=== PATIENT | female | born 1990 | race African-American/Black ===

== ENCOUNTER 2017-08-13 16:42 | Emergency (ER) | payer BC ==
[~2017-08-13] VITALS: Ht 152.4 cm; Wt 60.0 kg
[~2017-08-13 16:42] MED LIST: DICY1TAB26 PO; IBUP600 PO; ZOFR4TAB3 SL
[2017-08-13 16:44] VITALS: BP 114/66; PULSE 111; RESP 18; TEMP 98.7; O2SAT 100
[2017-08-13] MEDS ORDERED: ZITHTAB PO (17:10)
--- NOTE | 2017-08-13 17:10 | PD ---
HPI Chief Complaint: Cold / Flu Symptoms Time Seen by Provider: 16:57 Travel History International Travel<30 days: No Contact w/Intl Traveler<30days: No Traveled to known affect area: No History of Present Illness HPI 26-year-old female complains of earache sore throat coughing congestion body ache. Patient states that the symptoms started yesterday. Patient states that she had low-grade fever at home. Patient denies abdominal pain. Patient denies any nausea vomiting diarrhea. Patient denies any chance of being . PFSH Past Medical History Diminished Hearing: No Immunizations Current: Yes ?: Not Social History Alcohol Use: No Tobacco Use: No Substance Use: No Allergies-Medications (Allergen,Severity, Reaction): Coded Allergies: chloral hydrate (Unverified Allergy, Unknown, 02/23/17) Reported Meds & Prescriptions Reported Meds & Active Scripts Active No Active Prescriptions or Reported Medications Review of Systems General / Constitutional: No: Fever Eyes: No: Visual changes HENT: Positive: Sore Throat, Congestion, Earache, No: Headaches Cardiovascular: No: Chest Pain or Discomfort Respiratory: Positive: Cough, No: Shortness of Breath Gastrointestinal: No: Abdominal Pain Genitourinary: No: Dysuria Musculoskeletal: No: Pain Skin: No Rash Neurologic: No: Weakness Psychiatric: No: Depression Endocrine: No: Polydipsia Hematologic/Lymphatic: No: Easy Bruising Physical Exam Narrative GENERAL: Well-nourished, well-developed patient. SKIN: Focused skin assessment warm/dry. HEAD: Normocephalic. EYES: No scleral icterus. No injection or drainage. TM: Clear. Throat: Mild erythematous. NECK: Supple, trachea midline. No JVD or lymphadenopathy. No meningismus CARDIOVASCULAR: Regular rate and rhythm without murmurs, gallops, or rubs. RESPIRATORY: Breath sounds equal bilaterally. No accessory muscle use. GASTROINTESTINAL: Abdomen soft, non-tender, nondistended. MUSCULOSKELETAL: No cyanosis, or edema. BACK: Nontender without obvious deformity. No CVA tenderness. Neurologic exam normal. Data Data Last Documented VS Vital Signs Date Time Temp Pulse Resp B/P (MAP) Pulse Ox O2 Delivery O2 Flow Rate FiO2 08/13/17 16:44 98.7 111 18 114/66 (82) 100 MDM Medical Decision Making Medical Screen Exam Complete: Yes Emergency Medical Condition: Yes Differential Diagnosis Differential diagnosis including viral syndrome, otitis media, pharyngitis, bronchitis, pneumonia. Narrative Course 26-year-old female with earaches, sore throat, coughing congestion body ache. Diagnosis Primary Impression: Bronchitis Additional Impression: Viral syndrome Patient Instructions: General Instructions Additional Instructions: Z-Timothy as directed. Tylenol or ibuprofen for aching pain and fever. Over-the- counter cough medication as directed. Follow-up with personal physician. Return if worse. Med/Other Pt SpecificInfo: Prescription(s) given Scripts Azithromycin (Zithromax Z-Timothy) 250 Mg Dspk 250 MG PO DIRECTED for Infection, #1 DSPK 0 Refills 500 MG (2 tabs) day 1, then 1 tab days 2-5. Prov: Valentino Newberry MD 08/13/17 Disposition: 01 DISCHARGE HOME Condition: Stable Valentino Newberry MD Aug 13, 2017 17:10
== END 2017-08-13 17:21 | disposition home or self-care (01) ==
LOC: NEPD 16:42
DX: J40 Bronchitis, not specified as acute or chronic (principal); B34.9 Viral infection, unspecified
CPT/HCPCS: 99283

== ENCOUNTER 2017-08-14 20:58 | Observation (INO) | payer BC ==
[~2017-08-14] VITALS: Ht 152.4 cm; Wt 60.0 kg
[~2017-08-14 20:58] MED LIST changes: -DICY1TAB26 PO; -IBUP600 PO; +ZITHTAB PO; -ZOFR4TAB3 SL
[2017-08-14 21:02] VITALS: BP 132/59; PULSE 120; RESP 36; O2SAT 96
[2017-08-14 21:07] VITALS: O2SAT 100
[2017-08-14 21:14] VITALS: BP 127/78; PULSE 100; RESP 22; O2SAT 100
[2017-08-14 21:15] LABS: AUTOMATED NEUTROPHIL # 3.6 TH/MM3 (1.8-7.7); BASOPHIL # 0.1 TH/MM3 (0-0.2); BASOPHIL % 0.9 % (0.0-2.0); EOSINOPHIL # 0.1 TH/MM3 (0-0.4); EOSINOPHIL % 1.2 % (0.0-4.0); HEMATOCRIT 30.7 % (35.0-46.0); HEMOGLOBIN 10.1 GM/DL (11.6-15.3); LYMPH % 40.1 % (9.0-44.0); LYMPHOCYTE # 2.8 TH/MM3 (1.0-4.8); MEAN CELL VOLUME 77.2 FL (80.0-100.0); MEAN CORPUSCULAR HEMOGLOBIN 25.4 PG (27.0-34.0); MEAN PLATELET VOLUME 9.9 FL (7.0-11.0); MONOCYTE # 0.5 TH/MM3 (0-0.9); NEUT % 50.8 % (16.0-70.0); PLATELET COUNT 196 TH/MM3 (150-450); RED BLOOD COUNT 3.97 MIL/MM3 (4.00-5.30); RED CELL DISTRIBUTION WIDTH 16.5 % (11.6-17.2); WHITE BLOOD COUNT 7.1 TH/MM3 (4.0-11.0)
[2017-08-14] MEDS ORDERED: SODIUM CHLOR 0.9% 1000 ML INJ 1,000 ML IV ONE (21:15)
[2017-08-14] MEDS ORDERED: SODIUM CHLORIDE 0.9% FLUSH 10 ML FLUSH IVF PRN (21:15)
[2017-08-14] MEDS ORDERED: LORazepam 2 MG/ML VIAL IV PUSH ONE (21:15)
[2017-08-14 21:26] LABS: INTERNATIONAL NORMALIZED RATIO 1.1 RATIO; PROTHROMBIN TIME - PATIENT 11.1 SEC (9.8-11.6)
--- NOTE | 2017-08-14 21:26 | RADRPT ---
EXAM DATE/TIME: 08/14/2017 21:16 [facility] COMPARISON: CHEST SINGLE AP, March 09, 2015, 21:17. INDICATIONS : Chest pain patient states chest feels like it is caving in. MEDICAL HISTORY : None. SURGICAL HISTORY : None. ENCOUNTER: Initial ACUITY: 1 day PAIN SCORE: 8/10 LOCATION: Bilateral chest FINDINGS: The lungs are clear without infiltrate, nodule, or mass. There is no appreciable pleural effusion fo r technique. Heart and mediastinum are unremarkable. There is prominence of the perivascular marking s with crowding of the bronchovascular markings may be due to expiratory state of this radiograph, ho wever slight interstitial process is not excluded. CONCLUSION: No definite acute cardiopulmonary disease. Patric Hollins MD on August 14, 2017 at 21:23 Board Certified Radiologist. This report was verified electronically.
[2017-08-14 21:30] LABS: D-DIMER 0.86 MG/L FEU (0.00-0.50)
[2017-08-14 21:32] LABS: BICARBONATE 24.3 MEQ/L (21.0-32.0); BLOOD UREA NITROGEN 10 MG/DL (7-18); CHLORIDE 101 MEQ/L (98-107); CREATININE 0.73 MG/DL (0.50-1.00); GLOMERULAR FILTRATION RATE 119 ML/MIN (>89); GLUCOSE,RANDOM 100 MG/DL (74-106); MAGNESIUM 1.8 MG/DL (1.5-2.5); SODIUM (NA) 136 MEQ/L (136-145)
[2017-08-14 21:37] LABS: TROPONIN I LESS THAN 0.02 NG/ML (0.02-0.05)
--- NOTE | 2017-08-14 22:10 | PD ---
HPI Chief Complaint: Chest Pain Time Seen by Provider: 21:01 Travel History International Travel<30 days: No Contact w/Intl Traveler<30days: No Traveled to known affect area: No History of Present Illness HPI 26-year-old female presents hyperventilating complaining of chest pain and shortness of breath. She states that she was seen in the emergency department yesterday and diagnosed with bronchitis and started on an antibiotic. She also states that she was eating shrimp today. She is unsure if she is having an allergic reaction. She denies any known history of allergies. She reports having a cough. No fevers or chills. PFSH Past Medical History Medical History: Denies Significant Hx Diminished Hearing: No Immunizations Current: Yes Tetanus Vaccination: Unknown Influenza Vaccination: No ?: Not LMP: 08/11/2016 Past Surgical History Surgical History: No Previous Surgery Social History Alcohol Use: No Tobacco Use: No Substance Use: No Allergies-Medications (Allergen,Severity, Reaction): Coded Allergies: chloral hydrate (Unverified Allergy, Unknown, 08/14/17) Reported Meds & Prescriptions Reported Meds & Active Scripts Active Zithromax Z-Timothy (Azithromycin) 250 Mg Dspk 250 Mg PO DIRECTED 500 MG (2 tabs) day 1, then 1 tab days 2-5. Review of Systems Except as stated in HPI: all other systems reviewed are Neg Physical Exam Narrative GENERAL: Well-developed, well-nourished, awake, alert, hyperventilating SKIN: Focused skin assessment warm/dry. HEAD: Atraumatic. Normocephalic. EYES: Pupils equal and round. No scleral icterus. No injection or drainage. ENT: No nasal bleeding or discharge. Mucous membranes pink and moist. No tongue or lip swelling. No drooling or stridor. NECK: Trachea midline. No JVD. CARDIOVASCULAR: Tachycardic, rate 115, regular. RESPIRATORY: No accessory muscle use. Clear to auscultation. Breath sounds equal bilaterally. GASTROINTESTINAL: Abdomen soft, non-tender, nondistended. MUSCULOSKELETAL: No obvious deformities. No clubbing. No cyanosis. No edema. NEUROLOGICAL: Awake and alert. No obvious cranial nerve deficits. Motor grossly within normal limits. Normal speech. PSYCHIATRIC: Appears anxious. Data Data Last Documented VS Vital Signs Date Time Temp Pulse Resp B/P (MAP) Pulse Ox O2 Delivery O2 Flow Rate FiO2 08/14/17 23:50 119 20 120/73 (89) 100 Room Air Orders Orders Electrocardiogram (08/14/17 21:01) Basic Metabolic Panel (Bmp) (08/14/17 21:01) Ckmb (Isoenzyme) Profile (08/14/17 21:01) Complete Blood Count With Diff (08/14/17 21:01) Magnesium (Mg) (08/14/17 21:01) Prothrombin Time / Inr (Pt) (08/14/17 21:01) Act Partial Throm Time (Ptt) (08/14/17 21:01) Troponin I (08/14/17 21:01) Chest, Single Ap (08/14/17 21:01) Ecg Monitoring (08/14/17 21:01) Bilateral Bp Monitoring (08/14/17 21:01) Iv Access Insert/Monitor (08/14/17 21:01) Oximetry (08/14/17 21:01) Oxygen Administration (08/14/17 21:01) Sodium Chloride 0.9% Flush (Ns Flush) (08/14/17 21:15) Beta Hcg (Quant/Titer) (08/14/17 21:01) Lorazepam Inj (Ativan Inj) (08/14/17 21:15) D-Dimer (08/14/17 21:01) Sodium Chlor 0.9% 1000 Ml Inj (Ns 1000 M (08/14/17 21:15) Ct Pulmonary Angiogram (08/14/17 21:46) Ketorolac Inj (Toradol Inj) (08/14/17 22:15) Iohexol 350 Inj (Omnipaque 350 Inj) (08/14/17 22:53) Labs Laboratory Tests Test 08/14/17 21:04 White Blood Count 7.1 TH/MM3 Red Blood Count 3.97 MIL/MM3 Hemoglobin 10.1 GM/DL Hematocrit 30.7 % Mean Corpuscular Volume 77.2 FL Mean Corpuscular Hemoglobin 25.4 PG Mean Corpuscular Hemoglobin Concent 33.0 % Red Cell Distribution Width 16.5 % Platelet Count 196 TH/MM3 Mean Platelet Volume 9.9 FL Neutrophils (%) (Auto) 50.8 % Lymphocytes (%) (Auto) 40.1 % Monocytes (%) (Auto) 7.0 % Eosinophils (%) (Auto) 1.2 % Basophils (%) (Auto) 0.9 % Neutrophils # (Auto) 3.6 TH/MM3 Lymphocytes # (Auto) 2.8 TH/MM3 Monocytes # (Auto) 0.5 TH/MM3 Eosinophils # (Auto) 0.1 TH/MM3 Basophils # (Auto) 0.1 TH/MM3 CBC Comment DIFF FINAL Differential Comment Prothrombin Time 11.1 SEC Prothromb Time International Ratio 1.1 RATIO Activated Partial Thromboplast Time 23.4 SEC D-Dimer Quantitative (PE/DVT) 0.86 MG/L FEU Blood Urea Nitrogen 10 MG/DL Creatinine 0.73 MG/DL Random Glucose 100 MG/DL Calcium Level 9.0 MG/DL Magnesium Level 1.8 MG/DL Sodium Level 136 MEQ/L Potassium Level 3.5 MEQ/L Chloride Level 101 MEQ/L Carbon Dioxide Level 24.3 MEQ/L Anion Gap 11 MEQ/L Estimat Glomerular Filtration Rate 119 ML/MIN Total Creatine Kinase 66 U/L Troponin I LESS THAN 0.02 NG/ML Human Chorionic Gonadotropin, Quant LESS THAN 1 MIU/ML MDM Medical Decision Making Medical Screen Exam Complete: Yes Emergency Medical Condition: Yes Medical Record Reviewed: Yes Interpretation(s) EKG: Sinus, rate 96, leftward axis, normal intervals, no acute ischemic abnormality. Differential Diagnosis ACS, pneumothorax, peritonitis, PE, pneumonia, anxiety/panic attack Narrative Course Vital signs reviewed. CBC: WBC 7.1, hemoglobin 10.1, hematocrit 30.7, platelets 196. BMP is unremarkable. Beta hCG is negative. Cardiac enzymes are negative. D-dimer slightly elevated at 0.86. Chest x-ray: No definite acute cardiopulmonary disease. CT pulmonary angiogram: CONCLUSION: 1. No PE is identified. 2. Significant bilateral axillary, right supraclavicular, and mediastinal lymphadenopathy. The appearance is highly suspicious for a lymphoproliferative disorder. 3. Mild groundglass opacity at the lung bases could be related to atelectasis or could represent a mild pulmonary parenchymal process. Case discussed with on-call asphalt tile floor layer Dr. Gonzalez who states that the patient should either be admitted for 24-hour observation for biopsy or follow- up as an outpatient. I discussed this with the patient as well as the patient' s mother via telephone, and the patient prefers to stay in the hospital to have lymph node biopsy performed. Case discussed with hospitalist Dr. Corbin who will admit the patient to her service. Diagnosis Primary Impression: Lymphadenopathy Additional Impression: Atypical chest pain Admitting Information Admitting Physician Requests: Observation Referrals: Primary Care Physician 3 days Additional Instructions: Follow-up with a primary care physician this week. Return to the emergency department for worsening symptoms or any other concerns. Disposition: 01 DISCHARGE HOME Condition: Stable Pawan Beard MD Aug 14, 2017 22:10
[2017-08-14] MEDS ORDERED: KETOROLAC TROMETHAMINE 30 MG/ML (IVP) VIAL IV PUSH ONE (22:15)
[2017-08-14] MEDS ORDERED: IOHEXOL 350 MG/ML 10 ML VIAL (for RAD DIAG) IVCONTRAST ONE (22:53)
--- NOTE | 2017-08-14 23:10 | RADRPT ---
EXAM DATE/TIME: 08/14/2017 22:44 [facility] COMPARISON: No previous studies available for comparison. INDICATIONS : Chest pain and dyspnea; rule out pulmonary embolus. IV CONTRAST: 63 cc Omnipaque 350 (iohexol) IV RADIATION DOSE: 8.24 CTDIvol (mGy) MEDICAL HISTORY : Non-responsive. SURGICAL HISTORY : Non-responsive. ENCOUNTER: Initial ACUITY: 1 day PAIN SCALE: 6/10 LOCATION: chest TECHNIQUE: Volumetric scanning of the chest was performed using a pulmonary embolism protocol MIP images were re constructed. Using automated exposure control and adjustment of the mA and/or kV according to patien t size, radiation dose was kept as low as reasonably achievable to obtain optimal diagnostic quality images. DICOM format image data is available electronically for review and comparison. Follow-up recommendations for detected pulmonary nodules are based at a minimum on nodule size and pa tient risk factors according to Fleischner Society Guidelines. FINDINGS: PULMONARY ARTERIES: No filling defects are seen in the pulmonary arteries through the segmental level. LUNGS: There is groundglass opacity independent atelectasis in the lung bases bilaterally. No pneumothorax i s present. PLEURAE: There is no pleural thickening or pleural effusion. MEDIASTINUM: There are enlarged mediastinal lymph nodes bilaterally. No hilar lymphadenopathy is present. There is an enlarged subcarinal lymph node. Heart and great vessels demonstrate no acute finding. MUSCULOSKELETAL: Within normal limits for patient age. MISCELLANEOUS: There is markedly enlarged bilateral axillary lymphadenopathy with the largest left axillary lymph no de measuring 3.3 x 2.1 cm the largest right axillary lymph node measuring approximately 3.4 x 1.9 cm. There is a so supraclavicular lymphadenopathy bilaterally, right greater than left. CONCLUSION: 1. No PE is identified. 2. Significant bilateral axillary, right supraclavicular, and mediastinal lymphadenopathy. The appear ance is highly suspicious for a lymphoproliferative disorder. 3. Mild groundglass opacity at the lung bases could be related to atelectasis or could represent a mi ld pulmonary parenchymal process. Conor Carvaajl MD on August 14, 2017 at 22:58 Board Certified Radiologist. This report was verified electronically.
[2017-08-14 23:50] VITALS: BP 120/73; PULSE 119; RESP 20; O2SAT 100
[2017-08-15] MEDS ORDERED: ONDANSETRON HCL 4 MG/2 ML VIAL IVP PRN (00:15)
[2017-08-15] MEDS ORDERED: LACTULOSE SYRUP 20 GM/30 ML CUP PO PRN (00:15)
[2017-08-15] MEDS ORDERED: ACETAMINOPHEN 325 MG TAB PO PRN (00:15)
[2017-08-15] MEDS ORDERED: MORPHINE SULFATE 2 MG/ML INJ IV PUSH PRN (00:15)
[2017-08-15] MEDS ORDERED: MAGNESIUM HYDROXIDE SUSP 30 ML CUP PO PRN (00:15)
[2017-08-15] MEDS ORDERED: SODIUM CHLORIDE 0.9% FLUSH 10 ML FLUSH IV FLUSH PRN (00:15)
[2017-08-15] MEDS ORDERED: LORazepam 2 MG/ML VIAL IV PUSH PRN (00:15)
[2017-08-15] MEDS ORDERED: RESP: ALBUTEROL 2.5 MG/IPRATROPIUM 0.5 MG NEB (PRN) NEB (00:15)
[2017-08-15] MEDS ORDERED: ACETAMINOPHEN/HYDROcodone 325 MG/5 MG TAB PO PRN (00:15)
[2017-08-15] MEDS ORDERED: SENNOSIDES 8.6 MG TAB PO PRN (00:15)
[2017-08-15] MEDS ORDERED: BISACODYL 10 MG SUPP RECTAL PRN (00:15)
[2017-08-15 00:24] VITALS: O2SAT 100
--- NOTE | 2017-08-15 00:27 | HHI.HP ---
HPI [facility] Primary Care Physician Unknown Admission Diagnosis lymphadenopathy, atypical chest pain Diagnoses: (1) Chest pain Diagnosis: Principal (2) Lymphadenopathy Diagnosis: Principal Travel History International Travel<30 Days: No Contact w/Intl Traveler <30 Da: No Traveled to Known Affected Are: No History of Present Illness This is a 26-year-old female with no significant PMH who presented to the ER with complaints of chest pain and SOB starting tonight. Was seen in ER on for c/o cough, congestion and sore throat, diagnosed w/ Bronchitis and given Z-pack which she started yesterday. Today, states she felt better and went to a dinner alliance party, however had acute onset of chest pain and SOB. States chest pain is intermittent, severe, 8/10, worse w/ lying down, sitting up or deep breath, non-radiating. Reports non-productive cough. On arrival, BP 132/59, HR 120, O2 sat 96% on RA, Afebrile. CBC essentially unremarkable. History unremarkable. Troponin negative. INR 1.1. D-dimer elevated at 0.86. CXR with no acute findings. CTA Pulm negative for PE, significant bilateral axillary, right supraclavicular and mediastinal lymphadenopathy suspicious for lymphoproliferative disorder. Dr. Mir consulted by ER physician, recommended admission for biopsy for further evaluation. Review of Systems Except as stated in HPI: all other systems reviewed are Neg ROS: 14 point review of systems otherwise negative. Past Family Social History Past Medical History PMH: None Past Surgical History PAST SURGICAL HISTORY: None Allergies: Coded Allergies: chloral hydrate (Unverified Allergy, Unknown, 08/14/17) Family History PAST FAMILY HISTORY: Reviewed. No h/o DM or CAD Social History PAST SOCIAL HISTORY: Negative for alcohol, tobacco or drugs. Physical Exam Vital Signs Vital Signs Date Time Temp Pulse Resp B/P (MAP) Pulse Ox O2 Delivery O2 Flow Rate FiO2 08/15/17 00:03 117 18 98 Room Air 08/14/17 23:50 119 20 120/73 (89) 100 Room Air 08/14/17 21:14 100 22 127/78 (94) 100 Room Air 08/14/17 21:07 100 Room Air 08/14/17 21:02 120 36 132/59 (83) 96 Room Air Physical Exam PE: GENERAL: Extremely pleasant young black female in no acute distress. HEENT: PERRLA, EOMI. No scleral icterus or conjunctival pallor. No lid lag or facial droop. CARDIOVASCULAR: Regular rate and rhythm. No obvious murmurs to auscultation. No chest tenderness to palpation. RESPIRATORY: No obvious rhonchi or wheezing. Clear to auscultation. Breath sounds equal bilaterally. GASTROINTESTINAL: Abdomen soft, non-tender, nondistended. BS normal. MUSCULOSKELETAL: Extremities without clubbing, cyanosis, or edema. No obvious deformities. NEUROLOGICAL: Awake, alert and oriented x4. No focal neurologic deficits. Moving both upper and lower extremities spontaneously. Laboratory Laboratory Tests Test 08/14/17 21:04 White Blood Count 7.1 Red Blood Count 3.97 Hemoglobin 10.1 Hematocrit 30.7 Mean Corpuscular Volume 77.2 Mean Corpuscular Hemoglobin 25.4 Mean Corpuscular Hemoglobin Concent 33.0 Red Cell Distribution Width 16.5 Platelet Count 196 Mean Platelet Volume 9.9 Neutrophils (%) (Auto) 50.8 Lymphocytes (%) (Auto) 40.1 Monocytes (%) (Auto) 7.0 Eosinophils (%) (Auto) 1.2 Basophils (%) (Auto) 0.9 Neutrophils # (Auto) 3.6 Lymphocytes # (Auto) 2.8 Monocytes # (Auto) 0.5 Eosinophils # (Auto) 0.1 Basophils # (Auto) 0.1 CBC Comment DIFF FINAL Differential Comment Prothrombin Time 11.1 Prothromb Time International Ratio 1.1 Activated Partial Thromboplast Time 23.4 D-Dimer Quantitative (PE/DVT) 0.86 Blood Urea Nitrogen 10 Creatinine 0.73 Random Glucose 100 Calcium Level 9.0 Magnesium Level 1.8 Sodium Level 136 Potassium Level 3.5 Chloride Level 101 Carbon Dioxide Level 24.3 Anion Gap 11 Estimat Glomerular Filtration Rate 119 Total Creatine Kinase 66 Troponin I LESS THAN 0.02 Human Chorionic Gonadotropin, Quant LESS THAN 1 Result Diagram: 08/14/17210308/14/172103 Caprini VTE Risk Assessment Caprini VTE Risk Assessment: No/Low Risk (score <= 1) Caprini Risk Assessment Model Point Value = 1 Point Value = 2 Point Value = 3 Point Value = 5 Age 41-60 Minor surgery BMI > 25 kg/m2 Swollen legs Varicose veins or History of unexplained or recurrent spontaneous Oral contraceptives or hormone replacement Sepsis (< 1 month) Serious lung disease, including pneumonia (< 1 month) Abnormal pulmonary function Acute myocardial infarction Congestive heart failure (< 1 month) History of inflammatory bowel disease Medical patient at bed rest Age 61-74 Arthroscopic surgery Major open surgery (> 45 min) Laparoscopic surgery (> 45 min) Malignancy Confined to bed (> 72 hours) Immobilizing plaster cast Central venous access Age >= 75 History of VTE Family history of VTE Factor V Leiden Prothrombin [id number] Lupus anticoagulant Anticardiolipin antibodies Elevated serum homocysteine Heparin-induced thrombocytopenia Other congenital or acquired thrombophilia Stroke (< 1 month) Elective arthroplasty Hip, pelvis, or leg fracture Acute spinal cord injury (< 1 month) Prophylaxis Regimen Total Risk Factor Score Risk Level Prophylaxis Regimen 0-1 Low Early ambulation 2 Moderate Order ONE of the following: *Sequential Compression Device (SCD) *Heparin 5000 units SQ BID 3-4 Higher Order ONE of the following medications: *Heparin 5000 units SQ TID *Enoxaparin/Lovenox 40 mg SQ daily (WT < 150 kg, CrCl > 30 mL/min) *Enoxaparin/Lovenox 30 mg SQ daily (WT < 150 kg, CrCl > 10-29 mL/min) *Enoxaparin/Lovenox 30 mg SQ BID (WT < 150 kg, CrCl > 30 mL/min) AND/OR *Sequential Compression Device (SCD) 5 or more Highest Order ONE of the following medications: *Heparin 5000 units SQ TID (Preferred with Epidurals) *Enoxaparin/Lovenox 40 mg SQ daily (WT < 150 kg, CrCl > 30 mL/min) *Enoxaparin/Lovenox 30 mg SQ daily (WT < 150 kg, CrCl > 10-29 mL/min) *Enoxaparin/Lovenox 30 mg SQ BID (WT < 150 kg, CrCl > 30 mL/min) AND *Sequential Compression Device (SCD) Assessment and Plan Problem List: (1) Chest pain ICD Code: R07.9 - Chest pain, unspecified (2) Lymphadenopathy ICD Code: R59.1 - Generalized enlarged lymph nodes Status: Acute Assessment and Plan A/P: 1. Chest Pain: Atypical. Pleuritic. C/o chest pain worse w/ inspiration, recent dx of Bronchitis, on Z-pack. Admit for Observation, place on telemetry. Initial trop negative, check serial cardiac enzymes to eval for underlying ischemia, however low risk. Analgesics/antiemetics as needed. CXR negative for acute findings, CTA Pulm negative for PE, images reviewed by me. 2. Lymphadenopathy: CTA Pulm w/ significant bilateral lymphadenopathy suspicious for lymphoproliferative disorder. Dr. Mir consulted, recommended biopsy. Will consult IR for lymph node biopsy. 3. DVT Prophylaxis: SCD/Teds. 4. Social work for d/c planning as needed. 5. Case discussed w/ ER physician at length, labs/records/imaging reviewed by me. Jonelle Corbin MD Aug 15, 2017 00:27
[2017-08-15 01:00] VITALS: BP 108/58; PULSE 58; RESP 18; TEMP 97.9; O2SAT 99
[2017-08-15 04:01] VITALS: BP 103/58; PULSE 108; RESP 18; TEMP 98; O2SAT 100
[2017-08-15 06:11] VITALS: PULSE 83
[2017-08-15 07:17] VITALS: BP 106/56; PULSE 92; RESP 18; TEMP 99; O2SAT 99
[2017-08-15] MEDS ORDERED: DOCUSATE SODIUM 50 MG/SENNA 8.6 MG TAB PO SCH (09:00)
[2017-08-15] MEDS ORDERED: SODIUM CHLORIDE 0.9% FLUSH 10 ML FLUSH IV FLUSH SCH (09:00)
--- NOTE | 2017-08-15 09:34 | HHI.PR ---
Subjective Remarks Follow-up visit shortness of breath, bronchitis, lymphadenopathy. Patient seen and examined today. Significant other at the bedside. Patient reports she is doing okay. Occasional cough without any shortness of breath. Some nausea, vomiting, diarrhea. Denies any chest pain, palpitations. States diabetes runs in her family but no cancer. Objective Vitals Vital Signs Date Time Temp Pulse Resp B/P (MAP) Pulse Ox O2 Delivery O2 Flow Rate FiO2 08/15/17 07:17 99.0 92 18 106/56 (73) 99 08/15/17 06:11 83 08/15/17 04:01 98.0 108 18 103/58 (73) 100 08/15/17 01:00 97.9 58 18 108/58 (75) 99 08/15/17 00:34 08/15/17 00:24 100 08/15/17 00:03 117 18 98 Room Air 08/14/17 23:50 119 20 120/73 (89) 100 Room Air 08/14/17 21:14 100 22 127/78 (94) 100 Room Air 08/14/17 21:07 100 Room Air 08/14/17 21:02 120 36 132/59 (83) 96 Room Air I/O 08/14/17 08/14/17 08/14/17 08/15/17 08/15/17 08/15/17 06:59 14:59 22:59 06:59 14:59 22:59 Intake Total 1000 ml 1000 ml Balance 1000 ml 1000 ml Intake IV Total 1000 ml 1000 ml # Voids 1 Result Diagram: 08/14/17210308/14/172103 Imaging Last Imp[address] CT Angiography 08/14/172145 Signed Impressions: Service Date/Time: Monday, August 14, 2017 22:44 - CONCLUSION: 1. No PE is identified. 2. Significant bilateral axillary, right supraclavicular, and mediastinal lymphadenopathy. The appearance is highly suspicious for a lymphoproliferative disorder. 3. Mild groundglass opacity at the lung bases could be related to atelectasis or could represent a mild pulmonary parenchymal process. Conor Carvajal MD Chest X-Ray 08/14/172100 Signed Impressions: Service Date/Time: Monday, August 14, 2017 21:16 - CONCLUSION: No definite acute cardiopulmonary disease. Patric Hollins MD Objective Remarks GENERAL: This is a well-nourished, well-developed patient, in no apparent distress. SKIN: Warm and dry HEENT: Normocephalic. Pupils equal round and reactive. Nose without bleeding. Airway patent. NECK: Trachea midline. No JVD. Supple. CARDIOVASCULAR: Regular rate and rhythm without murmurs, gallops, or rubs. RESPIRATORY: Diminished bases. No wheezes, rales, or rhonchi. GASTROINTESTINAL: Abdomen soft, non-tender, nondistended. Bowel Sounds normoactive x4. MUSCULOSKELETAL: Extremities without clubbing, cyanosis, or edema. NEUROLOGICAL: Awake and alert. Oriented to time, place, person. No focal neuro deficit. Moves all extremities. Normal speech. A/P Problem List: (1) Chest pain ICD Code: R07.9 - Chest pain, unspecified (2) Lymphadenopathy ICD Code: R59.1 - Generalized enlarged lymph nodes Status: Acute Assessment and Plan Patient is a 26-year-old female with no significant PMH who presented to the ER with complaints of chest pain and SOB. Chest pain, atypical Pleuritic pain - Diagnosed with bronchitis prior to coming into the hospital on Z-Timothy - Troponin negative, CK negative - CXR negative for acute findings - CTA Pulm negative for PE - Analgesics, antiemetics as needed - Reports no chest pain today. On room air. Lymphadenopathy - CTA showed 1. No PEs identified. 2. Significant bilateral axillary, right supraclavicular, and mediastinal lymphadenopathy. Appears suspicious for lymphoproliferative disorder. 3. Mild groundglass opacity at the lung base could be related to atelectasis or could represent a pulmonary parenchymal process. - Hematology/oncology consult and general surgery for biopsy. Will await for further recommendation. Anemia - Monitor H&H - HGB 10 is her baseline. Check Iron panel and ferritin. - Hematology oncology consult as above DVT prop ambulation, SCDs Spoke with Dr. Mir and Dr. Kimble. Plan to discharge home today with follow- up appointment with Dr. Mir next week Tuesday for follow-up. Patient will have a scheduled appointment for biopsy with Dr. Kimble on Tuesday. Discharge patient to home Condition on discharge: Improved Regular Diet as tolerated Ad Yelitza activity Rx written: Continue azithromycin from home Cepacol lozenges when necessary Mucinex when necessary Follow-up with primary care physician Follow-up with Dr. Kimble, surgery, Tuesday08/17/17 Follow-up with Dr. Mir, hematology/oncology, Tuesday08/26/17 Discharge Planning Plan to discharge home today when cleared by oncology and general surgery. Yael George Aug 15, 2017 09:34
[2017-08-15 10:19] LABS: AUTOMATED NEUTROPHIL # 3.6 TH/MM3 (1.8-7.7); BASOPHIL % 0.4 % (0.0-2.0); EOSINOPHIL # 0.1 TH/MM3 (0-0.4); EOSINOPHIL % 1.4 % (0.0-4.0); HEMOGLOBIN 8.6 GM/DL (11.6-15.3); LYMPH % 31.5 % (9.0-44.0); MEAN CELL VOLUME 77.5 FL (80.0-100.0); MEAN CORPUSCULAR HEMOGLOBIN 25.6 PG (27.0-34.0); MEAN CORPUSCULAR HGB CONC 33.1 % (32.0-36.0); MEAN PLATELET VOLUME 9.8 FL (7.0-11.0); MONO % 8.8 % (0.0-8.0); MONOCYTE # 0.6 TH/MM3 (0-0.9); NEUT % 57.9 % (16.0-70.0); PLATELET COUNT 166 TH/MM3 (150-450); RED BLOOD COUNT 3.36 MIL/MM3 (4.00-5.30); RED CELL DISTRIBUTION WIDTH 16.7 % (11.6-17.2); WHITE BLOOD COUNT 6.3 TH/MM3 (4.0-11.0)
[2017-08-15 10:30] LABS: ALBUMIN 2.7 GM/DL (3.4-5.0); AST (GOT) 16 U/L (15-37); BICARBONATE 26.9 MEQ/L (21.0-32.0); BLOOD UREA NITROGEN 12 MG/DL (7-18); CALCIUM 8.3 MG/DL (8.5-10.1); CHLORIDE 106 MEQ/L (98-107); CREATININE 0.62 MG/DL (0.50-1.00); GLOMERULAR FILTRATION RATE 143 ML/MIN (>89); GLUCOSE,RANDOM 101 MG/DL (74-106); SODIUM (NA) 140 MEQ/L (136-145)
[2017-08-15 10:32] LABS: ALT (GPT) 17 U/L (10-53)
[2017-08-15 10:35] LABS: ALKALINE PHOSPHATASE 66 U/L (45-117); TOTAL BILIRUBIN ADULT 0.1 MG/DL (0.2-1.0); TOTAL PROTEIN 7.7 GM/DL (6.4-8.2); TROPONIN I LESS THAN 0.02 NG/ML (0.02-0.05)
[2017-08-15 11:53] VITALS: BP 112/72; PULSE 122; RESP 18; TEMP 99; O2SAT 100
[2017-08-15 11:53] LABS: IRON (FE) 20 MCG/DL (50-170)
[2017-08-15 12:02] LABS: % SATURATION IRON PROFILE 6.9 % (20-50); FERRITIN 16 NG/ML (8-252); TOTAL IRON BINDING CAPACITY 288 MCG/DL (250-450)
[2017-08-15] MEDS ORDERED: BENZOCAINE 6 MG/MENTHOL 10 MG LOZENGE BUCCAL ONE (13:00)
[2017-08-15] MEDS ORDERED: AZITHROMYCIN 250 MG TAB PO SCH (13:00)
[2017-08-15] MEDS ORDERED: RESP: ALBUTEROL 2.5 MG/IPRATROPIUM 0.5 MG NEB (SCH) NEB (13:00)
--- NOTE | 2017-08-15 13:29 | PD.CONS ---
HPI Service General Surgery Consult Requested By Dr. Corbin Reason for Consult lymph node biopsy Primary Care Physician Unknown History of Present Illness 26 yo F presents with c/o chest pain and shortness of breath; she has been feeling "sick" recently. No fevers or chills. She did notice a lump in right neck. She recently graduated from [employer]. CTA chest performed here reveals bilaterally axillary adenopathy, right supraclavicular adenopathy, mediastinal adenopathy. Review of Systems Constitutional: DENIES: Fever, Chills Eyes: DENIES: Eye inflammation, Eye pain Respiratory: COMPLAINS OF: Shortness of breath, DENIES: Cough, Snoring Cardiovascular: COMPLAINS OF: Chest pain Gastrointestinal: DENIES: Abdominal pain, Nausea Integumentary: DENIES: Pruritus, Rash Neurologic: DENIES: Paresthesias, Seizures Past Family Social History Past Medical History None Past Surgical History None Reported Medications None Allergies: Coded Allergies: chloral hydrate (Unverified Allergy, Unknown, 08/14/17) Active Ordered Medications Current Medications Medications (Trade) Dose Ordered Sig/Thierry Route Start Time Stop Time Status Last Admin (NS Flush) 2 ml UNSCH PRN IV FLUSH 08/15/17 00:15 (NS Flush) 2 ml BID IV FLUSH 08/15/17 09:00 08/15/17 09:00 (Zofran Inj) 4 mg Q6H PRN IVP 08/15/17 00:15 (Tylenol) 650 mg Q6H PRN PO 08/15/17 00:15 ([place] 5-325 Mg) 1 tab Q4H PRN PO 08/15/17 00:15 (Morphine Inj) 2 mg Q3H PRN IV PUSH 08/15/17 00:15 (Ambika-Colace) 1 tab BID PO 08/15/17 09:00 (Milk Of Magnesia Liq) 30 ml Q12H PRN PO 08/15/17 00:15 (Senokot) 17.2 mg Q12H PRN PO 08/15/17 00:15 (Dulcolax Supp) 10 mg DAILY PRN RECTAL 2/5/18 00:15 (Lactulose Liq) 30 ml DAILY PRN PO 08/15/17 00:15 (Duoneb Neb) 1 ampule Q4HR NEB PRN NEB 08/15/17 00:15 (Ativan Inj) 1 mg Q2H PRN IV PUSH 08/15/17 00:15 (Flu (Quadrivalent) Vaccine Inj) 0.5 ml ONCE ONCE IM 08/16/17 10:00 08/16/17 10:01 (Duoneb Neb) 1 ampule BID NEB NEB 08/15/17 13:00 (Zithromax) 250 mg DAILY PO 08/15/17 13:00 08/18/17 12:59 Family History Noncontributory Social History No ETOH, tobacco, or drug use. She is from [place]. Boyfriend present with her. Physical Exam Vital Signs Vital Signs Date Time Temp Pulse Resp B/P (MAP) Pulse Ox O2 Delivery O2 Flow Rate FiO2 08/15/17 11:53 99.0 122 18 112/72 (85) 100 08/15/17 07:17 99.0 92 18 106/56 (73) 99 08/15/17 06:11 83 08/15/17 04:01 98.0 108 18 103/58 (73) 100 08/15/17 01:00 97.9 58 18 108/58 (75) 99 08/15/17 00:34 08/15/17 00:24 100 08/15/17 00:03 117 18 98 Room Air 08/14/17 23:50 119 20 120/73 (89) 100 Room Air 08/14/17 21:14 100 22 127/78 (94) 100 Room Air 08/14/17 21:07 100 Room Air 08/14/17 21:02 120 36 132/59 (83) 96 Room Air Physical Exam GENERAL: Awake and alert. No acute distress. Cooperative. HEAD: Normocephalic. Atraumatic. EYES: Pupils equal round and reactive to light bilaterally. No scleral icterus. CHEST: Nonlabored breathing. No respiratory distress. CARDIOVASCULAR: Well perfused. Lymph nodes: bilateral axillary and inguinal lymphadenopathy. Small right cervical node. EXTREMITIES: No cyanosis or edema. SKIN: Warm, dry, nonjaundiced. Laboratory Laboratory Tests Test 08/14/17 21:04 08/15/17 02:28 08/15/17 09:38 White Blood Count 7.1 6.3 Red Blood Count 3.97 3.36 Hemoglobin 10.1 8.6 Hematocrit 30.7 26.0 Mean Corpuscular Volume 77.2 77.5 Mean Corpuscular Hemoglobin 25.4 25.6 Mean Corpuscular Hemoglobin Concent 33.0 33.1 Red Cell Distribution Width 16.5 16.7 Platelet Count 196 166 Mean Platelet Volume 9.9 9.8 Neutrophils (%) (Auto) 50.8 57.9 Lymphocytes (%) (Auto) 40.1 31.5 Monocytes (%) (Auto) 7.0 8.8 Eosinophils (%) (Auto) 1.2 1.4 Basophils (%) (Auto) 0.9 0.4 Neutrophils # (Auto) 3.6 3.6 Lymphocytes # (Auto) 2.8 2.0 Monocytes # (Auto) 0.5 0.6 Eosinophils # (Auto) 0.1 0.1 Basophils # (Auto) 0.1 0.0 CBC Comment DIFF FINAL DIFF FINAL Differential Comment Prothrombin Time 11.1 Prothromb Time International Ratio 1.1 Activated Partial Thromboplast Time 23.4 D-Dimer Quantitative (PE/DVT) 0.86 Blood Urea Nitrogen 10 12 Creatinine 0.73 0.62 Random Glucose 100 101 Calcium Level 9.0 8.3 Magnesium Level 1.8 Sodium Level 136 140 Potassium Level 3.5 3.7 Chloride Level 101 106 Carbon Dioxide Level 24.3 26.9 Anion Gap 11 7 Estimat Glomerular Filtration Rate 119 143 Total Creatine Kinase 66 Troponin I LESS THAN 0.02 LESS THAN 0.02 LESS THAN 0.02 Human Chorionic Gonadotropin, Quant LESS THAN 1 Total Protein 7.7 Albumin 2.7 Alkaline Phosphatase 66 Aspartate Amino Transf (AST/SGOT) 16 Alanine Aminotransferase (ALT/SGPT) 17 Total Bilirubin 0.1 Iron Level 20 Total Iron Binding Capacity 288 Percent Iron Saturation 6.9 Ferritin 16 Result Diagram: 08/15/17 0938 08/15/17 [address] Angiography 08/14/17 2146 Signed Impressions: Service Date/Time: Monday, August 14, 2017 22:44 - CONCLUSION: 1. No PE is identified. 2. Significant bilateral axillary, right supraclavicular, and mediastinal lymphadenopathy. The appearance is highly suspicious for a lymphoproliferative disorder. 3. Mild groundglass opacity at the lung bases could be related to atelectasis or could represent a mild pulmonary parenchymal process. Conor Carvajal MD Chest X-Ray 08/14/172100 Signed Impressions: Service Date/Time: Monday, August 14, 2017 21:16 - CONCLUSION: No definite acute cardiopulmonary disease. K. Yannick Hollins MD Assessment and Plan Assessment and Plan 26 yo F with systemic lymphadenopathy. Will plan outpatient lymph node excision right axillary. I discussed surgery in detail with her including risks and benefits and the rationale.Discussed with her mother by phone. D/w Dr. Mir. My office will call her to schedule case for this week. Lamin,Bryce BRYANT Aug 15, 2017 13:29
[2017-08-15] MEDS ORDERED: HUMIBIDDM PO (14:16)
[2017-08-15] MEDS ORDERED: BENZ1LOZ5 PO (14:18)
--- NOTE | 2017-08-15 14:18 | HHI.DCPOC ---
Discharge Care Plan Diagnosis: (1) Bronchitis (2) Lymphadenopathy (3) Atypical chest pain Your Health Problems Are: Cough Shortness of Breath Goals to Promote Your Health * To prevent worsening of your condition and complications * To maintain your health at the optimal level Directions to Meet Your Goals Take your medications as prescribed Follow your dietary instruction Follow activity as directed Keep your appointments as scheduled Take your immunizations and boosters as scheduled If your symptoms worsen call your PCP, if no PCP go to Urgent Care Center or Emergency Room Smoking is Dangerous to Your Health. Avoid second hand smoke Call the 24-hour hour crisis hotline for domestic abuse at Yael George Aug 15, 2017 14:18
--- NOTE | 2017-08-15 22:08 | EKG ---
Date Performed: 08/14/2017 Time Performed: 21:06:48 PTAGE: 26 years EKG: Sinus rhythm MARKED LEFT AXIS DEVIATION ABNORMAL ECG NO PREVIOUS TRACING DOCTOR: Zarina Yepez Interpretating Date/Time 08/15/2017 22:02:02
--- NOTE | 2017-08-16 07:20 | MB ---
cc: CHRISTIE BELLO M.D. DATE OF CONSULTATION 08/15/2017 REASON FOR CONSULTATION Consult requested by hospitalist for evaluation of lymphadenopathy. HISTORY OF PRESENT ILLNESS Rosey is a pleasant 26-year-old Afro-[place] female. She is without any significant past medical history. She came to the emergency room complaining of chest pain and shortness of breath. She came in the day before yesterday with a similar complain and she was told that she may have some bronchitis and she was given antibiotic and she was discharged to home. However, her symptoms did not improve and she came back to the emergency room yesterday. The patient underwent CT angiogram of the chest which did not show any pulmonary embolism. However, it shows significant bilateral axillary, right supraclavicular and mediastinal lymphadenopathy. The ER physician, Dr. Beard, had contacted me for advice. I have told him that the patient could be either discharged to home and can be worked up as an outpatient or the patient could be under 23-hour observation and obtain surgical consult for biopsy of the lymph node. The patient is admitted by [facility]. I have been asked to see the patient for further evaluation. REVIEW OF SYSTEMS The patient had denies any fever, night sweats or weight loss. She denies any lymphadenopathy. She is quite anxious and upset with the news of possible malignancy. Her boyfriend is at bedside. The rest of the review of systems is negative. PAST MEDICAL HISTORY None. PAST SURGICAL HISTORY None. ALLERGIES CHLOROHYDRATE. FAMILY HISTORY No history of for malignancy that she knows of. She has two siblings; both are healthy. SOCIAL HISTORY The patient does not smoke cigarettes, does not drink alcohol. PHYSICAL EXAMINATION GENERAL: This is a well-developed, well-nourished Afro-[place] female in no apparent distress except that she is upset with the news. VITAL SIGNS: Temperature 99, heart rate is 122, blood pressure is 112/72, O2 saturation 100%. HEENT: PERRLA. EOMI. Anicteric. No oral lesions are noted. NECK: No lymphadenopathy noted. LYMPHATICS: However, she does have bilateral axillary lymphadenopathy and inguinal lymphadenopathy. LUNGS: Clear. No wheezing, rhonchi or rales. HEART: Tachycardia with no murmur. ABDOMEN: Soft, nontender. EXTREMITIES: No pedal edema. NEUROLOGY: Awake, alert, oriented x 3. SKIN: No significant lesions are noted. ASSESSMENT Bilateral axillary lymphadenopathy with the largest left axillary lymph node at 3.3 cm and the largest right axillary lymph node at 3.4 cm There is also supraclavicular lymphadenopathy noted on both sides, the right greater than the left. She also has bilateral enlarged mediastinal lymph nodes. There is no hilar lymphadenopathy noted. There is an enlarged subcarinal lymph node noted as well. There are no lung masses noted. I had an extensive discussion with the patient and her boyfriend regarding the lymphadenopathy. I suspect that this is most likely due to lymphoma until proven otherwise. The patient starts crying when she hears the news of possible cancer. I tried to reassure her and sympathize with her. We discussed that we need to confirm the diagnosis and will discuss treatment options. I have cancelled [facility]' order for CT-guided core needle biopsy with interventional radiologist as this would not give us the correct information about the type of lymphoma. Therefore I have requested consult for General Surgery to see her for excisional biopsy of the lymph node. Dr. Kimble, general surgeon, also was present when I walked in to see the patient. We have discussed that the patient should have excisional lymph node biopsy. Unfortunately the patient has already had her meal today and she is not n.p.o. The earliest Dr. Kimble could do a lymph node biopsy is this Tuesday. Therefore, the patient can be discharged to home and Dr. Kimble will arrange for the lymph node biopsy this Tuesday. I will also arrange for her to come back to our oncology center next week for followup and we will make further recommendations once we have the results of the biopsy of the lymph node. I have discussed the case with [facility] nurse practitioner as well as the patient's nurse. In my opinion the patient could be safely discharged to home and can be followed up as an outpatient. Thank you for asking my opinion. MD VERENA Ellsworth/JESSICA /6:35 PM /7:05 AM KADIE
[2017-08-16] MEDS ORDERED: INFLUENZA VIRUS VACCINE (QUADRIVALENT) 0.5 ML SYR IM ONE (10:00)
== END 2017-08-15 15:54 | disposition home or self-care (01) ==
LOC: NEPE 20:58 → NEDA 08-15 00:01 → NEPHCDU 08-15 00:54
PROVIDERS: ADMIT Family Medicine; ATTEND Family Medicine
DX: R07.89 Other chest pain (principal); J40 Bronchitis, not specified as acute or chronic; R59.0 Localized enlarged lymph nodes; D64.9 Anemia, unspecified; R94.31 Abnormal electrocardiogram [ECG] [EKG]; R06.02 Shortness of breath; R06.4 Hyperventilation; R11.2 Nausea with vomiting, unspecified; R19.7 Diarrhea, unspecified; R00.0 Tachycardia, unspecified; Z83.3 Family history of diabetes mellitus
CPT/HCPCS: 71045; 71275; 80048; 80053; 82550; 82728; 83540; 83550; 83735; 84484; 84702; 85025; 85379; 85610; 85730; 93005; 94664; 96361; 96374; 96375; 99285; G0378; J1885; J2060; J7030; Q9967